=== PATIENT | male | born 1965 | race Caucasian/White ===

== ENCOUNTER 2019-12-05 14:28 | Observation (INO) ==
--- NOTE | 2019-12-05 14:49 | Emergency Department Note ---
Impression & Plan Atrial fibrillation with rapid ventricular response, Palpitations ED Provider Note CHIEF COMPLAINT: Palpitations HISTORY OF PRESENTING ILLNESS: This is a 54-year-old male with past medical his tory significant for hypertension who presents to the emergency department by private vehicle with complaint of heart palpitations and fluctuating pulse that started this morning. Patient states that he felt fine yesterday and did not notice any symptoms although he does note that he has been under increased stress at work for this whole week. This morning he woke up earlier than normal and "just did not feel quite right", but was able to do normal activities. He states that he went on a bike ride with his children for about 20 minutes and felt fine. His is a nurse and was checking his pulse and noted that it was fluctuating between 60-120s and was irregular. They spoke with a friend who is a psychiatrist and recommended that he get checked out. The patient denies any history of heart palpitations or irregular rhythms in the past. He notes that he was started on blood pressure medicine about a year ago and he also takes a baby aspirin every day. He denies any history of heart disease. He denies any chest pain, shortness of breath, cough or hemoptysis. He denies any leg pain or swelling. He does note that he feels lightheaded if he stands up too quickly and this is new today, but he denies any persistent lightheadedness or syncope. He denies any sick contacts, persistent cough, fevers, chills, or direct exposure to COVID-19. He denies any nausea, vomiting, or diarrhea. REVIEW OF SYSTEMS: A complete 10 point review of systems was reviewed with the patient with pertinent positives and negatives as per history of present illness. All else were negative. PAST MEDICAL HISTORY: Hypertension, seasonal allergies SOCIAL HISTORY: Lives at home with family, he is a former smoker ALLERGIES: No known allergies PHYSICAL EXAM: CONSTITUTIONAL: Pleasant and cooperative. Nontoxic-appearing and in no acute distress. Well appearing and well nourished. HEENT: Normocephalic, atraumatic. PERRL, EOMI. Pharynx normal. NECK: Supple, full active range of motion without discomfort. RESPIRATORY: Clear to auscultation bilaterally with no wheezing, crackles, rhonchi or stridor. Equal expansion bilaterally. CARDIOVASCULAR: Tachycardic, irregularly irregular rate and rhythm, no murmurs, rubs or gallops heard. Normal peripheral perfusion, 2+ distal pulses in all 4 ex tremities. No pitting edema. GASTROINTESTINAL: Soft, nontender, nondistended. No palpable masses or HSM. Bowel sounds present in all quadrants. MUSCULOSKELETAL: Full range of motion of all joints without discomfort. INTEGUMENTARY: No rash or other significant dermatologic conditions noted. NEUROLOGIC: Alert and oriented X 4 with normal affect. Normal strength and sensation in all 4 extremities. Normal speech. Normal gait observed. ED COURSE AND MEDICAL DECISION MAKING: CC: Patient presenting with complaint of palpitations DIFFERENTIAL DIAGNOSIS: Includes, but not limited to cardiac dysrhythmia, cardiac ectopy, acute coronary syndrome, dehydration, electrolyte abnormality, thyroid dysfunction, medication side effect, among others. INTERPRETATION OF LABS: No leukocytosis, no anemia, normal platelets, no significant electrolyte abnormalities, normal renal function, normal liver e nzymes. TSH within normal limits. Negative troponin. Coagulation factors within normal limits. IMAGING: SINGLE VIEW CHEST CLINICAL HISTORY: Arrhythmia. FINDINGS: 2 AP, portable, upright chest radiographs are obtained. No prior studies are available for comparison at the time of dictation. The cardiomediastinal silhouette is unremarkable. The lungs and pleural spaces are clear. No pneumothorax is seen. The bony thorax is grossly intact. IMPRESSION: No active disease in the chest. EKG: Shows atrial fibrillation with RVR with a rate of 103 bpm, no ST or T wave abnormalities, no ectopy by my interpretation. No previous EKGs available for comparison. MEDICATION RECONCILIATION: I attest that I have personally reviewed the patient's current medication list. INITIAL VITAL SIGNS REVIEW: I reviewed the patient's initial vital signs and interpret them as follows: T: Afebrile; BP: Mildly hypertensive; HR: Tachycardic; RR: Within normal limits; Pulse Ox: Within normal limits on room air. Blood pressure screening: The patient was found to have an elevated blood pressure and was referred to the inpatient team for further management. MDM SUMMARY: Patient was evaluated at bedside, history and physical exam performed. The patient is alert and oriented, in no acute distress, resting calmly in the stretcher. Heart sounds are noted to be irregularly irregular and tachycardic, no murmurs or rubs. Lungs are clear. EKG was reviewed at bedside, noting atrial fibrillation with RVR with a rate of 103 bpm. Cardiac monitoring: An order was placed for continuous cardiac monitoring. The monitor shows a fluctuating rate of 90-120 bpm with atrial fibrillation rhythm. Patient is hemodynamically stable. He denies any chest pain or shortness of breath. Orders were placed at bedside for labs including troponin and TSH, chest x-ray to evaluate for cardiopulmonary disease. Patient discussed with Dr. Pena, who agrees with my assessment, plan, and disposition. Dr. Pena did recommend that I give the patient 4 g of IV magnesium, this was ordered. Labs and imaging reviewed as above, labs are fairly unremarkable. No electrolyte abnormalities. He is not anemic. Troponin is negative. TSH within normal limits. Chest x-ray is clear. I spoke on the phone with Dr. Henderson, cardiology, who agreed with admission for the patient. Since the heart rate is not significantly elevated and the patient has been stable, he recommended starting the patient on oral medications, metoprolol 25 mg twice daily and Eliquis 5 mg twice daily, and he also recommended serial troponins and an echocardiogram during admission. Metoprolol and Eliquis were ordered and given in the ED. I spoke with Dr. Hdz, [facility] Hospitalist service, who agrees to evaluate the patient for admission. Patient reassessed multiple times throughout ED stay, he has remained hemodynamically stable, chest pain-free and without any other concerning symptoms. The heart rate continues to fluctuate in the low 100s on monitor. The patient was updated on all results and plan for admission for further work- up and treatment of his atrial fibrillation, all questions were answered at this time and he was comfortable with this plan. The patient was stable at time of admission. The chart was completed utilizing [employer] Speech voice recognition software. Grammatical errors, random word insertions, pronoun errors, and incomplete sentences are an occasional consequence of this system due to software l imitations, ambient noise, and hardware issues. Any formal questions or concerns about the content, text, or information contained within the body of this dictation should be directly addressed to the nurse practitioner for clarification. Past Med/Surg History Social History Preferred Language: Tajik Communication Ability: Effective Design Drafter Chief Required: No Beliefs That Will Affect Care: None Current Living Situation: Spouse and Family Feels Safe at Home: Yes Safety Concerns: Feels Safe At This Time Smoking Status: Former smoker Tobacco Type: cigarettes ; Do You Dip or Chew Tobacco: No ; Second Hand Exposure: No ; Tobacco Cessation Education Requested by Patient: No Hx Alcohol Use: Yes Alcohol type: beer, wine and hard liquor Hx Substance Use: No Allergies Allergies Allergy/AdvReac Type Severity Reaction Status Date / Time No Known Allergies Allergy Verified 12/05/19 15:51 Home Meds Home Medications Medication Instructions Recorded Confirmed aspirin 81 mg PO DAILY 12/05/19 12/05/19 cetirizine [Zyrtec] 10 mg PO QAM 12/05/19 12/05/19 fluticasone propionate [Flonase 2 spray INTRANASAL DAILY PRN 12/05/19 12/05/19 Allergy Relief] hydrochlorothiazide 6.25 mg PO QAM 12/05/19 12/05/19 losartan 25 mg PO QAM 12/05/19 12/05/19 Results & Data (ED) Vital Signs Vital Signs - 24 hr 12/05/19 14:30 12/05/19 15:10 12/05/19 15:13 Temperature 36.8 C Temperature Source Oral Pulse Rate 102 H 116 H Pulse Rate [Left] Pulse Rate from SpO2 Sensor 96 H Respiratory Rate 18 20 Respiratory Effort / Characteristics Non-Labored Spontaneous Non-Labored Spontaneous Respiratory Depth Normal Normal Respiratory Pattern Regular Regular Blood Pressure 121/87 117/97 Blood Pressure [Right Arm] Blood Pressure Mean 98 99 Blood Pressure Mean [Right Arm] Blood Pressure Position [Right Arm] Pulse Oximetry 98 98 97 Oxygen Delivery Method Room Air Room Air Room Air Sepsis Recent Fever Within 48 Hours No Sepsis New/Unexplained Change in Mental Status No Sepsis Action Taken by Nursing No Action Required 12/05/19 15:30 12/05/19 16:01 12/05/19 16:30 Temperature Temperature Source Pulse Rate 92 H 92 H 91 H Pulse Rate [Left] 100 H Pulse Rate from SpO2 Sensor 97 H 100 H 93 H Respiratory Rate 10 L 14 32 H Respiratory Effort / Characteristics Respiratory Depth Respiratory Pattern Blood Pressure 106/79 109/67 111/74 Blood Pressure [Right Arm] 111/74 Blood Pressure Mean 83 96 90 Blood Pressure Mean [Right Arm] 86 Blood Pressure Position [Right Arm] Lying Pulse Oximetry 94 96 96 Oxygen Delivery Method Room Air Sepsis Recent Fever Within 48 Hours Sepsis New/Unexplained Change in Mental Status Sepsis Action Taken by Nursing Laboratory Data Result diagrams: 12/05/19 15:10 12/05/19 15:10 Lab Results 12/05/19 12/05/19 12/05/19 Range/Units 15:10 15:10 15:10 WBC 5.68 (4.8-10.8) K/uL RBC 5.34 (4.7-6.1) M/uL Hgb 15.9 (14.0-18.0) g/dL Hct 45.6 (42-52) % MCV 85.4 (80-100) fL MCH 29.8 (25-34) pg MCHC 34.9 (32-36) g/dL RDW Std Deviation 42.4 (36.4-46.3) fL RDW Coeff of [place] 13.6 (11.5-14.5) % Plt Count 206 (130-400) K/uL MPV 9.9 (7.4-10.4) fL Immature Gran % (Auto) 0.2 % Neut % (Auto) 61.8 % Lymph % (Auto) 25.4 % [place] % (Auto) 8.5 % Eos % (Auto) 3.7 % Baso % (Auto) 0.4 % Immature Gran # (Auto) 0.01 (0.00-0.02) K/uL Neut # (Auto) 3.52 (1.4-6.5) K/uL Lymph # (Auto) 1.44 (1.2-3.4) K/uL [place] # (Auto) 0.48 (0.11-0.59) K/uL Eos # (Auto) 0.21 (0-0.5) K/uL Baso # (Auto) 0.02 (0-0.2) K/uL PT 10.6 (9.0-12.0) Seconds INR 1.0 (0.9-1.1) APTT 27.3 (21.0-31.0) Seconds PTT Ratio 1.0 Sodium 142 (136-145) mmol/L Potassium 3.9 (3.5-5.1) mmol/L Chloride 112 H (98-107) mmol/L Carbon Dioxide 24 (21-32) mmol/L Anion Gap 6.0 (3-11) BUN 20 H (7-18) mg/dl Creatinine 1.10 (0.6-1.4) mg/dl Est Cr Clr Drug Dosing 101.8 ml/min Est GFR ( Amer) 89.0 Est GFR (Non-Af Amer) 76.8 BUN/Creatinine Ratio 18.3 (10-20) Glucose 124 H (70-99) mg/dl Calcium 8.6 (8.5-10.1) mg/dl Magnesium 2.3 (1.8-2.4) mg/dl Total Bilirubin 0.4 (0.2-1) mg/dl AST 21 (15-37) U/L ALT 37 (12-78) U/L Alkaline Phosphatase 83 (45-117) U/L Troponin I < 0.015 (0-0.045) ng/ml Total Protein 7.1 (6.4-8.2) gm/dl Albumin 3.7 (3.4-5.0) gm/dl Globulin 3.4 (2.5-4.0) gm/dl Albumin/Globulin Ratio 1.1 (0.9-2) TSH 2.560 (0.300-4.500) uIu/ml Administered Medications Discontinued Medications Apixaban (Eliquis) 5 mg PO NOW STA Stop: 12/05/19 16:18 Last Admin: 12/05/19 16:40 Dose: 5 mg Documented by: [id number] Magnesium Sulfate/Dextrose (Magnesium Sulfate / D5w) 1 gm in 100 mls @ 100 mls/hr IV Q1H GIANFRANCO Stop: 12/05/19 19:14 Last Infusion: 12/05/19 18:41 Dose: 0 mls/hr Documented by: [id number] Infusion: 12/05/19 16:53 Dose: 50 mls/hr Documented by: [id number] Infusion: 12/05/19 16:45 Dose: 0 mls/hr Documented by: [id number] Admin: 12/05/19 16:33 Dose: 100 mls/hr Documented by: [id number] Infusion: 12/05/19 16:23 Dose: 100 mls/hr Documented by: [id number] Admin: 12/05/19 15:23 Dose: 100 mls/hr Documented by: [id number] Metoprolol Tartrate (Lopressor) 25 mg PO NOW STA Stop: 12/05/19 16:18 Last Admin: 12/05/19 16:39 Dose: 25 mg Documented by: [id number] Discharge Plan Visit Data *Final* Discharge Date/Time: 12/05/19 18:06 Chief Complaint: Arrhythmia/Palpitations Stated Complaint: FLUCUATING PULSE ED Provider: Yoshi Pena ED Midlevel Provider: Sommer Bey Discharge Problem: Atrial fibrillation with rapid ventricular response, Palpitations Patient Disposition: Admitted As Inpatient Condition: Good Discharge Instructions Interventions: ED Discharge Assessment Last Done: 12/05/19 18:06
[2019-12-05] MEDS: MAGNESIUM SULFATE / D5W 1 GM/100 ML BAG IV SCH ×2 (15:23→16:33)
[2019-12-05 15:30] LABS: Basophils # (auto) 0.02 K/uL (0-0.2); Basophils % (auto) 0.4 %; Eosinophils # (auto) 0.21 K/uL (0-0.5); Eosinophils % (auto) 3.7 %; Hematocrit (blood only) 45.6 % (42-52); Hemoglobin 15.9 g/dL (14.0-18.0); Immature Granulocytes # (auto) 0.01 K/uL (0.00-0.02); Immature Granulocytes % (auto) 0.2 %; Lymphocytes # (auto) 1.44 K/uL (1.2-3.4); Lymphocytes % (auto) 25.4 %; Mean Corpuscular Hemoglobin 29.8 pg (25-34); Mean Corpuscular Hgb Conc 34.9 g/dL (32-36); Mean Corpuscular Volume 85.4 fL (80-100); Mean Platelet Volume 9.9 fL (7.4-10.4); Monocytes # (auto) 0.48 K/uL (0.11-0.59); Monocytes % (auto) 8.5 %; Neutrophils # (auto) 3.52 K/uL (1.4-6.5); Neutrophils % (auto) 61.8 %; Platelet Count 206 K/uL (130-400); RDW Coefficient of Variation 13.6 % (11.5-14.5); RDW Standard Deviation 42.4 fL (36.4-46.3); Red Blood Count 5.34 M/uL (4.7-6.1); White Blood Count 5.68 K/uL (4.8-10.8)
[2019-12-05 15:42] LABS: Partial Thromboplastin Time 27.3 Seconds (21.0-31.0); Prothrombin Time 10.6 Seconds (9.0-12.0)
[2019-12-05 15:50] LABS: Alanine Aminotransferase 37 U/L (12-78); Albumin Level 3.7 gm/dl (3.4-5.0); Aspartate Aminotransferase 21 U/L (15-37); BUN Creatinine Ratio 18.3 (10-20); Blood Urea Nitrogen 20 mg/dl (7-18); Calcium 8.6 mg/dl (8.5-10.1); Carbon Dioxide 24 mmol/L (21-32); Chloride 112 mmol/L (98-107); Creatinine Clr Calc Pharmacy 101.8 ml/min; Est GFR (Non-African American) 76.8; Glucose 124 mg/dl (70-99); Magnesium 2.3 mg/dl (1.8-2.4); Potassium 3.9 mmol/L (3.5-5.1); Sodium 142 mmol/L (136-145)
--- NOTE | 2019-12-05 15:55 | XRay Report ---
SINGLE VIEW CHEST CLINICAL HISTORY: Arrhythmia. FINDINGS: 2 AP, portable, upright chest radiographs are obtained. No prior studies are available for comparison at the time of dictation. The cardiomediastinal silhouette is unremarkable. The lungs and pleural spaces are clear. No pneumothorax is seen. The bony thorax is grossly intact. IMPRESSION: No active disease in the chest. ACT 112: Negative or not required by law. Electronically signed by: Isael Celeste M.D. 12/05/2019 3:53 PM
[2019-12-05 16:01] LABS: Albumin Globulin Ratio 1.1 (0.9-2); Alkaline Phosphatase 83 U/L (45-117); Bilirubin,Total 0.4 mg/dl (0.2-1); Globulin 3.4 gm/dl (2.5-4.0); Total Protein 7.1 gm/dl (6.4-8.2); Troponin I < 0.015 ng/ml (0-0.045)
[2019-12-05] MEDS ORDERED: METOPROLOL TARTRATE 25 MG TAB PO STA (16:17)
[2019-12-05] MEDS ORDERED: APIXABAN 5 MG TABLET PO STA (16:17)
--- NOTE | 2019-12-05 16:58 | History & Physical Report ---
Date of Service December 05, 2019 Assessment & Plan (1) Atrial fibrillation with rapid ventricular response: - is a 54 year old male with no previous known cardiac disease, who takes for hypertension losartan 25 mg daily and HCTZ 6.25 mg daily with aspirin 81 mg daily for Hypertension, who presents to the ED with newly found atrial fibrillation with rapid ventricular response with heart rates in the low 100s and low 110s. Patient reports he was in usual state of health but after returning to home activities after bike ride he was feeling unwell. Denied chest pain or shortness of breath. no vomiting. no fevers. no abdomen pain. Home check of heart rates reportedly to be fluctuating between 60s to 120s. Patient denies problems with urination or with bowel movements. Patient did have 4 ounces of alcohol the night before but no chronic alcohol use. Quit smoking 20 years ago -In the ED, ED provider ordered magnesium supplementation but serum magnesium labs returned as normal as 2.3 and hospitalist informed nurse to stop magnesium supplementation immediately though some had been given already. Patient is not toxic in appearance and continues to have irregular heart rhythm in high 90s and low 100s when assessed by hospitalist and is due to get first dose of apixaban 5 mg and metoprolol tartrate which had been ordered by ED provider in their discussion with cardiology Dr. Henderson -continue apixaban as 5 mg BID and metoprolol tartrate as 25 mg BID for now with next doses to be given at 9 AM on 12/06/2019 -place patient under observation on telemetry [place], daily EKGs -request echocardiogram and full cardiology consultation -give diet for now but keep NPO after midnight in case there is acute decompenstation of heart rates and rhythm or if any cardiology procedure needed (2) HTN (hypertension): -continue home dose losartan 25 mg daily and HCTZ 6.25 mg daily -hold aspirin as apixaban therapy being started DVT prophylaxis: apixaban Full Code status Patient's [phone] Peralta will be following the patient as hospitalist starting on 12/06/2019 History of Present Illness 54 year old male with no previous known cardiac disease, who takes for hypertension losartan 25 mg daily and HCTZ 6.25 mg daily with aspirin 81 mg daily for Hypertension, who presents to the ED with newly found atrial fibrillation with rapid ventricular response with heart rates in the low 100s and low 110s. Patient reports he was in usual state of health but after returning to home activities after bike ride he was feeling unwell. Denied chest pain or shortness of breath. no vomiting. no fevers. no abdomen pain. Home check of heart rates reportedly to be fluctuating between 60s to 120s. Patient denies problems with urination or with bowel movements. Patient did have 4 ounces of alcohol the night before but no chronic alcohol use. Quit smoking 20 years ago -In the ED, ED provider ordered magnesium supplementation but serum magnesium labs returned as normal as 2.3 and hospitalist informed nurse to stop magnesium supplementation immediately though some had been given already. Patient is not toxic in appearance and continues to have irregular heart rhythm in high 90s and low 100s when assessed by hospitalist and is due to get first dose of apixaban 5 mg and metoprolol tartrate which had been ordered by ED provider in their discussion with cardiology Dr. Henderson Surgical History: Patient denies surgical history Family Health History: grandmother with atrial fibrillation Allergy history: patient reports no known allergies to medications or foods Primary Care Provider: Juanpablo Choi MD Allergies Allergy/AdvReac Type Severity Reaction Status Date / Time No Known Allergies Allergy Verified 12/05/19 15:51 Home Medications Home Medications Medication Instructions Recorded Confirmed Type aspirin 81 mg PO DAILY 12/05/19 12/05/19 History cetirizine [Zyrtec] 10 mg PO QAM 12/05/19 12/05/19 History fluticasone propionate [Flonase 2 spray INTRANASAL DAILY PRN 12/05/19 12/05/19 History Allergy Relief] hydrochlorothiazide 6.25 mg PO QAM 12/05/19 12/05/19 History losartan 25 mg PO QAM 12/05/19 12/05/19 History Past Med/Surg History Social History Preferred Language: Burmese Feels Safe at Home: Yes Smoking Status: Former smoker Review of Systems Review of Systems: All systems reviewed & are unremarkable except as noted in HPI & below Physical Exam Constitutional: comfortable Eyes: PERRL, conjunctivae normal, anicteric sclerae EOM intact bilaterally ENMT: external ear and nose normal, oropharynx normal Neck: normal visual inspection Respiratory: normal respiratory effort, lungs clear to auscultation Cardiovascular: Rate/Rhythm: + irregularly irregular Gastrointestinal (Abdomen): normal bowel sounds, soft, nontender, no hepatosplenomegaly Musculoskeletal: Head/Neck/Chest: normocephalic and head atraumatic Neurologic: PERRL, EOMI, accommodation nl, no face palsy, no dysarthria CN's II-XI intact bilaterally Psychiatric: A+Ox3, euthymic affect Results & Data Results & Data ([facility]) Vital Signs (Past 12 Hours) Vital Signs Temp Pulse Pulse Resp BP BP Pulse Ox 12/05/19 16:30 100 H 21 111/74 96 12/05/19 15:13 116 H 20 117/97 97 12/05/19 15:10 98 12/05/19 14:30 36.8 C 102 H 18 121/87 98 Code Status & VTE Plan VTE Prophylaxis Plan VTE Prophylaxis will be ordered: Yes
--- NOTE | 2019-12-05 16:58 | Electrocardiogram Report ---
Test Reason : Blood Pressure : / mmHG Vent. Rate : 103 BPM Atrial Rate : 192 BPM P-R Int : 000 ms QRS Dur : 088 ms QT Int : 320 ms P-R-T Axes : 000 005 -07 degrees QTc Int : 419 ms Atrial fibrillation with rapid ventricular response Abnormal ECG No previous ECGs available Confirmed by Chris Frances ([id number]) on 12/05/2019 4:58:05 PM Referred By: REFERRED SELF Confirmed By:Moi Frances
[2019-12-05] MEDS ORDERED: ACETAMINOPHEN 325 MG TAB PO PRN (18:26)
[2019-12-05 21:31] LABS: Magnesium 2.5 mg/dl (1.8-2.4); Troponin I < 0.015 ng/ml (0-0.045)
[2019-12-06 08:19] LABS: Basophils # (auto) 0.02 K/uL (0-0.2); Basophils % (auto) 0.3 %; Eosinophils # (auto) 0.24 K/uL (0-0.5); Eosinophils % (auto) 3.5 %; Hemoglobin 16.2 g/dL (14.0-18.0); Immature Granulocytes # (auto) 0.01 K/uL (0.00-0.02); Immature Granulocytes % (auto) 0.1 %; Lymphocytes # (auto) 1.73 K/uL (1.2-3.4); Lymphocytes % (auto) 25.1 %; Mean Corpuscular Hemoglobin 29.6 pg (25-34); Mean Corpuscular Hgb Conc 34.5 g/dL (32-36); Mean Corpuscular Volume 85.9 fL (80-100); Mean Platelet Volume 9.8 fL (7.4-10.4); Monocytes # (auto) 0.58 K/uL (0.11-0.59); Monocytes % (auto) 8.4 %; Neutrophils % (auto) 62.6 %; Platelet Count 195 K/uL (130-400); RDW Coefficient of Variation 13.6 % (11.5-14.5); RDW Standard Deviation 42.8 fL (36.4-46.3); Red Blood Count 5.47 M/uL (4.7-6.1); White Blood Count 6.88 K/uL (4.8-10.8)
--- NOTE | 2019-12-06 08:25 | Cardiology Consultation ---
Date of Consultation December 06, 2019 Assessment & Plan (1) Atrial fibrillation with rapid ventricular response: (2) HTN (hypertension): The patient converted spontaneously to normal sinus rhythm. I will review his echocardiogram and if it is unremarkable I believe that he can be discharged to outpatient follow-up. The metoprolol should be continued along with all his outpatient medications. The only exception is that while he is on the Eliquis he should not be on aspirin. History of Present Illness Attending Physician: Brianna Peralta MD History of Present Illness This is a 54-year-old male patient with minimal past medical history other than essential hypertension. He was in his usual state of health when he developed tachycardia and presented to the emergency department where he was found to be in atrial fibrillation with RVR. The patient was outside yesterday playing with his children when he noticed his heart rate just was not regular. He had no chest pain or shortness of breath. Early this morning after being started on metoprolol last night he converted to normal sinus rhythm spontaneously. I reviewed atrial fibrillation with the patient. I also reviewed the need for anticoagulation at least in the short-term. He has had no significant heart disease. No prior history of a heart murmur. Last year he was checked for sleep apnea and was found to be negative. Troponins are negative. TSH is within normal limits. Allergies Allergy/AdvReac Type Severity Reaction Status Date / Time No Known Allergies Allergy Verified 12/05/19 15:51 Home Medications Home Medications Medication Instructions Recorded Confirmed Type aspirin 81 mg PO DAILY 12/05/19 12/05/19 History cetirizine [Zyrtec] 10 mg PO QAM 12/05/19 12/05/19 History fluticasone propionate [Flonase 2 spray INTRANASAL DAILY PRN 12/05/19 12/05/19 History Allergy Relief] hydrochlorothiazide 6.25 mg PO QAM 12/05/19 12/05/19 History losartan 25 mg PO QAM 12/05/19 12/05/19 History Patient History Social History Preferred Language: Palauan Communication Ability: Effective Residential Aide Required: No Beliefs That Will Affect Care: None Current Living Situation: Spouse and Family Feels Safe at Home: Yes Safety Concerns: Feels Safe At This Time Smoking Status: Former smoker Tobacco Type: cigarettes ; Do You Dip or Chew Tobacco: No ; Second Hand Exposure: No ; Tobacco Cessation Education Requested by Patient: No Hx Alcohol Use: Yes Alcohol type: beer, wine and hard liquor Hx Substance Use: No Review of Systems Review of Systems: All systems reviewed & are unremarkable except as noted in HPI & below Nothing additional to add. Physical Exam Physical Exam: General: no acute distress and stated age Head: normocephalic, no masses, lesions, tenderness or abnormalities Eyes: conjunctiva are pink and non-injected, sclera clear Neck: supple, no adenopathy, no bruits, normal jugular venous pulse, no hepatojugular reflux Chest: normal shape and normal respiratory effort Lungs: clear to auscultation and percussion Cardiac Exam: - regular rate & rhythm, no murmurs gallops or rubs - normal S1, normal S2 Pulses: 2(+) throughout Abdomen: abdomen soft, non-tender, no abnormal masses and no hepatosplenomegaly Musculoskeletal: no gait disturbance, no joint inflammation, no deforming arthritis Extremities: no edema and no cyanosis Neuro: grossly normal exam Results & Data ([facility]) Vital Signs (Past 12 Hours) Vital Signs Temp Pulse Pulse Resp BP Pulse Ox 12/06/19 07:18 36.7 C 116 H 18 90/61 L 92 12/06/19 07:08 77 12/06/19 04:17 36.6 C 60 16 106/74 95 12/05/19 23:46 36.5 C 65 16 104/77 95 12/05/19 23:20 71 Laboratory Results Laboratory Results - last 24 hr 12/05/19 12/05/19 12/05/19 15:10 15:10 15:10 WBC 5.68 RBC 5.34 Hgb 15.9 Hct 45.6 MCV 85.4 MCH 29.8 MCHC 34.9 RDW Std Deviation 42.4 RDW Coeff of [place] 13.6 Plt Count 206 MPV 9.9 Immature Gran % (Auto) 0.2 Neut % (Auto) 61.8 Lymph % (Auto) 25.4 Davis % (Auto) 8.5 Eos % (Auto) 3.7 Baso % (Auto) 0.4 Immature Gran # (Auto) 0.01 Neut # (Auto) 3.52 Lymph # (Auto) 1.44 Davis # (Auto) 0.48 Eos # (Auto) 0.21 Baso # (Auto) 0.02 PT 10.6 INR 1.0 APTT 27.3 PTT Ratio 1.0 Sodium 142 Potassium 3.9 Chloride 112 H Carbon Dioxide 24 Anion Gap 6.0 BUN 20 H Creatinine 1.10 Est Cr Clr Drug Dosing 101.8 Est GFR ( Amer) 89.0 Est GFR (Non-Af Amer) 76.8 BUN/Creatinine Ratio 18.3 Glucose 124 H Calcium 8.6 Magnesium 2.3 Total Bilirubin 0.4 AST 21 ALT 37 Alkaline Phosphatase 83 Troponin I < 0.015 Total Protein 7.1 Albumin 3.7 Globulin 3.4 Albumin/Globulin Ratio 1.1 TSH 2.560 12/05/19 12/06/19 12/06/19 20:58 08:02 08:02 WBC 6.88 RBC 5.47 Hgb 16.2 Hct 47.0 MCV 85.9 MCH 29.6 MCHC 34.5 RDW Std Deviation 42.8 RDW Coeff of [place] 13.6 Plt Count 195 MPV 9.8 Immature Gran % (Auto) 0.1 Neut % (Auto) 62.6 Lymph % (Auto) 25.1 Davis % (Auto) 8.4 Eos % (Auto) 3.5 Baso % (Auto) 0.3 Immature Gran # (Auto) 0.01 Neut # (Auto) 4.30 Lymph # (Auto) 1.73 Davis # (Auto) 0.58 Eos # (Auto) 0.24 Baso # (Auto) 0.02 PT INR APTT PTT Ratio Sodium 139 Potassium 3.9 Chloride 109 H Carbon Dioxide 25 Anion Gap 5.0 BUN 19 H Creatinine 1.04 Est Cr Clr Drug Dosing 106.9 Est GFR ( Amer) 95.2 Est GFR (Non-Af Amer) 82.2 BUN/Creatinine Ratio 18.2 Glucose 104 H Calcium 9.2 Magnesium 2.5 H Total Bilirubin 0.4 AST 23 ALT 38 Alkaline Phosphatase 82 Troponin I < 0.015 < 0.015 Total Protein 6.9 Albumin 3.5 Globulin 3.4 Albumin/Globulin Ratio 1.0 TSH Medications Administered Current Inpatient Medications Acetaminophen (Tylenol) 325 mg PO Q6H PRN PRN Reason: Pain or Fever Stop: 01/04/20 18:25 Apixaban (Eliquis) 5 mg PO BID [facility] Stop: 01/05/20 08:59 Last Admin: 12/06/19 09:52 Dose: 5 mg Documented by: Hydrochlorothiazide (Hctz) 6.25 mg PO [facility] Stop: 01/05/20 08:59 Last Admin: 12/06/19 09:54 Dose: 6.25 mg Documented by: Losartan Potassium (Cozaar) 25 mg PO [facility] Stop: 01/05/20 08:59 Last Admin: 12/06/19 09:54 Dose: 25 mg Documented by: Metoprolol Tartrate (Lopressor) 25 mg PO BID [facility] Stop: 01/05/20 08:59 Last Admin: 12/06/19 09:53 Dose: 25 mg Documented by:
[2019-12-06 08:47] LABS: Alanine Aminotransferase 38 U/L (12-78); Albumin Level 3.5 gm/dl (3.4-5.0); Aspartate Aminotransferase 23 U/L (15-37); BUN Creatinine Ratio 18.2 (10-20); Bilirubin,Total 0.4 mg/dl (0.2-1); Blood Urea Nitrogen 19 mg/dl (7-18); Calcium 9.2 mg/dl (8.5-10.1); Carbon Dioxide 25 mmol/L (21-32); Chloride 109 mmol/L (98-107); Creatinine Clr Calc Pharmacy 106.9 ml/min; Est GFR (African American) 95.2; Est GFR (Non-African American) 82.2; Globulin 3.4 gm/dl (2.5-4.0); Glucose 104 mg/dl (70-99); Potassium 3.9 mmol/L (3.5-5.1); Sodium 139 mmol/L (136-145); Total Protein 6.9 gm/dl (6.4-8.2)
[2019-12-06 08:49] LABS: Alkaline Phosphatase 82 U/L (45-117); Troponin I < 0.015 ng/ml (0-0.045)
[2019-12-06] MEDS ORDERED: hydroCHLOROthiazide 25 MG TAB PO SCH (09:00)
[2019-12-06] MEDS ORDERED: LOSARTAN POTASSIUM 25 MG TAB PO SCH (09:00)
[2019-12-06] MEDS ORDERED: METOPROLOL TARTRATE 25 MG TAB PO SCH (09:00)
[2019-12-06] MEDS ORDERED: APIXABAN 5 MG TABLET PO SCH (09:00)
--- NOTE | 2019-12-06 11:34 | Hospitalist Progress Note ---
Date of Service December 06, 2019 Assessment & Plan (1) Atrial fibrillation with rapid ventricular response: - is a 54 year old male with no previous known cardiac disease, who takes for hypertension losartan 25 mg daily and HCTZ 6.25 mg daily with aspirin 81 mg daily for Hypertension, who presents to the ED with newly found atrial fibrillation with rapid ventricular response with heart rates in the low 100s and low 110s. Patient reports he was in usual state of health but after returning to home activities after bike ride he was feeling unwell. Denied chest pain or shortness of breath. no vomiting. no fevers. no abdomen pain. Home check of heart rates reportedly to be fluctuating between 60s to 120s. Patient denies problems with urination or with bowel movements. Patient did have 4 ounces of alcohol the night before but no chronic alcohol use. Quit smoking 20 years ago Serial cardiac enzymes remain unremarkable for any ACS He is echocardiogram has been pending He reverted to sinus rhythm and denies any other symptoms today Appreciate cardiology input and recommendation The echo is unremarkable he will be going home this afternoon He was advised to cut down the use of coffee. He can have decaffeinated coffee (2) HTN (hypertension): Continue home dose losartan 25 mg daily and HCTZ 6.25 mg daily Hold aspirin as apixaban therapy being started DVT prophylaxis: apixaban Full Code status Patient's [phone] Likely to be discharged this afternoon. Admission and Anticipated Discharge Date Admission Date: December 05, 2019 Subjective The patient was seen and examined in medical telemetry unit He was admitted with atrial fibrillation with rapid ventricular response with palpitation but no chest pain He is reverted to sinus rhythm and is maintaining Denies any symptoms this morning Review of Systems Review of Systems: All systems reviewed and are unremarkable except as noted below Cardiovascular: no chest pain and no palpitations Physical Exam Physical Exam: Lying in bed comfortably Constitutional: well developed, well nourished and + obese; no acute distress and not ill appearing Eyes: PERRL, conjunctivae normal, anicteric sclerae ENMT: external ear and nose normal, oropharynx normal Neck: trachea midline, no thyromegaly Respiratory: normal respiratory effort; no respiratory distress Auscultation: lungs clear to auscultation bilaterally Cardiovascular: Rate/Rhythm: regular rate and regular rhythm Heart Sounds: no murmur Gastrointestinal (Abdomen): Inspection/Auscultation: abdomen normal to inspection and normal bowel sounds Percussion/Palpation: abdomen soft; abdomen nontender Musculoskeletal: No acute arthritis in any Neurologic: moves all extremities; no focal motor deficits Lymphatic: no cervical or axillary lymphadenopathy Results & Data Results & Data ([facility]) Vital Signs (Past 12 Hours) Vital Signs Temp Pulse Pulse Resp BP BP Pulse Ox 12/06/19 11:13 36.8 C 80 16 116/76 93 12/06/19 09:56 61 20 120/82 96 12/06/19 07:18 36.7 C 116 H 18 90/61 L 92 12/06/19 07:08 77 12/06/19 04:17 36.6 C 60 16 106/74 95 12/05/19 23:46 36.5 C 65 16 104/77 95 Laboratory Results Short CBC 12/05/19 12/06/19 Range/Units 15:10 08:02 WBC 5.68 6.88 (4.8-10.8) K/uL Hgb 15.9 16.2 (14.0-18.0) g/dL Hct 45.6 47.0 (42-52) % Plt Count 206 195 (130-400) K/uL BMP 12/05/19 12/06/19 15:10 08:02 Sodium 142 139 Potassium 3.9 3.9 Chloride 112 H 109 H Carbon Dioxide 24 25 BUN 20 H 19 H Creatinine 1.10 1.04 Glucose 124 H 104 H Calcium 8.6 9.2 Cardiac Enzymes 12/05/19 12/05/19 12/06/19 Range/Units 15:10 20:58 08:02 Troponin I < 0.015 < 0.015 < 0.015 (0-0.045) ng/ml Liver Function 12/05/19 12/06/19 Range/Units 15:10 08:02 Total Bilirubin 0.4 0.4 (0.2-1) mg/dl AST 21 23 (15-37) U/L ALT 37 38 (12-78) U/L Alkaline Phosphatase 83 82 (45-117) U/L Albumin 3.7 3.5 (3.4-5.0) gm/dl Medications Administered Current Inpatient Medications Acetaminophen (Tylenol) 325 mg PO Q6H PRN PRN Reason: Pain or Fever Stop: 06/15/20 18:25 Apixaban (Eliquis) 5 mg PO BID [facility] Stop: 01/05/20 08:59 Last Admin: 12/06/19 09:52 Dose: 5 mg Documented by: Hydrochlorothiazide (Hctz) [facility] Stop: 01/05/20 08:59 Last Admin: 12/06/19 09:54 Dose: 6.25 mg Documented by: Losartan Potassium (Cozaar) 25 mg PO QAM [facility] Stop: 01/05/20 08:59 Last Admin: 12/06/19 09:54 Dose: 25 mg Documented by: Metoprolol Tartrate (Lopressor) 25 mg PO BID [facility] Stop: 01/05/20 08:59 Last Admin: 12/06/19 09:53 Dose: 25 mg Documented by:
--- NOTE | 2019-12-18 11:31 | Discharge Summary ---
Date of Service December 18, 2019 Admission HPI Per Admitting Provider 54 year old male with no previous known cardiac disease, who takes for hypertension losartan 25 mg daily and HCTZ 6.25 mg daily with aspirin 81 mg daily for Hypertension, who presents to the ED with newly found atrial fib rillation with rapid ventricular response with heart rates in the low 100s and low 110s. Patient reports he was in usual state of health but after returning to home activities after bike ride he was feeling unwell. Denied chest pain or shortness of breath. no vomiting. no fevers. no abdomen pain. Home check of heart rates reportedly to be fluctuating between 60s to 120s. Patient denies problems with urination or with bowel movements. Patient did have 4 ounces of alcohol the night before but no chronic alcohol use. Quit smoking 20 years ago -In the ED, ED provider ordered magnesium supplementation but serum magnesium labs returned as normal as 2.3 and hospitalist informed nurse to stop magnesium supplementation immediately though some had been given already. Patient is not toxic in appearance and continues to have irregular heart rhythm in high 90s and low 100s when assessed by hospitalist and is due to get first dose of apixaban 5 mg and metoprolol tartrate which had been ordered by ED provider in their discussion with cardiology Dr. Henderson Surgical History: Patient denies surgical history Family Health History: grandmother with atrial fibrillation Allergy history: patient reports no known allergies to medications or foods Primary Care Provider: Juanpablo Choi MD Admission Exam Per Admitting Provider Constitutional: comfortable Eyes: PERRL, conjunctivae normal, anicteric sclerae EOM intact bilaterally ENMT: external ear and nose normal, oropharynx normal Neck: normal visual inspection Respiratory: normal respiratory effort, lungs clear to auscultation Cardiovascular: Rate/Rhythm: + irregularly irregular Gastrointestinal (Abdomen): normal bowel sounds, soft, nontender, no hep atosplenomegaly Musculoskeletal: Head/Neck/Chest: normocephalic and head atraumatic Neurologic: PERRL, EOMI, accommodation nl, no face palsy, no dysarthria CN's II-XI intact bilaterally Psychiatric: A+Ox3, euthymic affect Principal Diagnosis A. fib with RVR, reverted to spontaneous sinus rhythm Discharge Exam Constitutional well developed, well nourished and + obese; no acute distress and not ill appearing Eyes PERRL, conjunctivae normal, anicteric sclerae ENMT external ear and nose normal, oropharynx normal Neck trachea midline, no thyromegaly Respiratory normal respiratory effort; no respiratory distress Auscultation: lungs clear to auscultation bilaterally Cardiovascular Rate/Rhythm: regular rate and regular rhythm Heart Sounds: no murmur Gastrointestinal (Abdomen) Inspection/Auscultation: abdomen normal to inspection and normal bowel sounds Percussion/Palpation: abdomen soft; abdomen nontender Neurologic moves all extremities; no focal motor deficits Lymphatic no cervical or axillary lymphadenopathy Discharge Data Allergies Allergy/AdvReac Type Severity Reaction Status Date / Time No Known Allergies Allergy Verified 12/05/19 15:51 Consultations 12/05/19 16:27 ED Decision to Admit Stat 12/05/19 16:52 Consult Cardiology Routine Hospital Course (1) Atrial fibrillation with rapid ventricular response: - is a 54 year old male with no previous known cardiac disease, who takes for hypertension losartan 25 mg daily and HCTZ 6.25 mg daily with aspirin 81 mg daily for Hypertension, who presents to the ED with newly found atrial fibrillation with rapid ventricular response with heart rates in the low 100s and low 110s. Patient reports he was in usual state of health but after returning to home activities after bike ride he was feeling unwell. Denied chest pain or shortness of breath. no vomiting. no fevers. no abdomen pain. Home check of heart rates reportedly to be fluctuating between 60s to 120s. Patient denies problems with urination or with bowel movements. Patient did have 4 ounces of alcohol the night before but no chronic alcohol use. Quit smoking 20 years ago Serial cardiac enzymes remain unremarkable for any ACS He is echocardiogram has been pending He reverted to sinus rhythm and denies any other symptoms today Appreciate cardiology input and recommendation The echo is unremarkable he will be going home this afternoon He was advised to cut down the use of coffee. He can have decaffeinated coffee (2) HTN (hypertension): Continue home dose losartan 25 mg daily and HCTZ 6.25 mg daily Hold aspirin as apixaban therapy being started DVT prophylaxis: apixaban Full Code status Patient's [phone] Likely to be discharged this afternoon. Total Time Total Time Spent Total Time Spent (In Minutes): 35 minutes Total Time Includes: Examination of the Patient, Discharge Planning, Medication Reconciliation and Communication With Other Providers Discharge Plan Discharge Items Patient Disposition: Home - Self-Care Reason For Visit: ATRIAL FIBRILLATION WITH RAPID VENTRICULAR RESPONS Discharge Diagnosis: A. fib with RVR, reverted to spontaneous sinus rhythm Condition on Discharge: Good Activity: Resume your previous activity Non-emergency contact: Primary Care Provider Call non-emergency contact if: you have any medication questions and your symptoms worsen Follow-up/Referrals: Juanpablo Choi MD [Primary Care Provider] - (Your doctor's office will call you with an appointment within 7 days. [facility] cardiology will call you with a follow-up appointment.) Diet: Heart Healthy Addtl Attending Provider Instructions: Please take your medications regularly You are on blood thinner, any injury can cause prolonged bleeding. Do not take any aspirin and or NSAID's which can potentiate bleeding Try to cut down your coffee drinking in moderation Pending Studies at Discharge: No Stand-Alone Forms: My [employer], Smoking Cessation Medications and DC Order Prescriptions: New Eliquis 5 mg Tablet 5 mg PO BID Qty: 60 RF: 0 metoprolol tartrate 25 mg Tablet 25 mg PO BID Qty: 60 RF: 0 Continued losartan 50 mg tablet 25 mg PO QAM RF: 0 cetirizine [Zyrtec] 10 mg Tablet 10 mg PO QAM RF: 0 fluticasone propionate [Flonase Allergy Relief] 50 mcg/actuation [place],Suspension 2 spray INTRANASAL DAILY PRN (Reason: Allergy Symptoms) RF: 0 hydrochlorothiazide 12.5 mg tablet 6.25 mg PO QAM RF: 0 Discontinued aspirin 81 mg Tablet,Delayed Release (Dr/Ec) 81 mg PO DAILY RF: 0 Discharge Orders: Discharge Order (Routine); Ordered 12/06/19 Ordered By: Brianna Peralta Admission Data Admit Date/Time: 12/05/19 16:50 Attending Provider: Brianna Peralta Admit Provider: Haris Hdz Primary Care Provider: Juanpablo Choi Other Providers: Pranay Henderson Other Interventions: Discharge Summary Assessment (RN) Last Done: 12/06/19 13:00 DC Date/Time DO NOT enter until pt leaves facility: 12/06/19 17:30
== END 2019-12-06 17:30 | disposition home or self-care (01) ==
LOC: 2N 14:28 → ED 14:28 → SUATTDRO 16:50 → 2N 18:06
DX: I10 Essential (primary) hypertension; Z87.891 Personal history of nicotine dependence; Z79.899 Other long term (current) drug therapy; I48.91 Unspecified atrial fibrillation; Z79.82 Long term (current) use of aspirin